=== PATIENT | male | born 1955 | race Caucasian/White ===

== ENCOUNTER → 2020-07-02 | Outpatient (CLI) | payer OTHER ==
[~2020-07-02] MED LIST: BEVESPI AEROS10.7 GM INH; CARVEDILOL12.5 MG PO; ECOTRIN81 MG PO; HYDROCODON-ACE1 EAC4 PO; HYDROXYCHLOROQ200 MG PO; IRON325 M1 PO; LEVOTHYROXINE25 MC1 PO; LEVOTHYROXINE25 MCG PO; LEVOTHYROXINE50 MC1 PO; LIPITOR40 MG PO; LISINOPRIL30 MG PO; LORATADINE10 MG PO; ULTRAM50 MG PO; VENTOLIN HFA 66.7 GM INH; VITAMIN B-121000 MCG PO; VITAMIN D3 PO
== END ==
LOC: RAD 11:26
DX: J44.9 Chronic obstructive pulmonary disease, unspecified (principal); R05 Cough; J43.9 Emphysema, unspecified; R59.0 Localized enlarged lymph nodes; S22.31XA Fracture of one rib, right side, initial encounter for closed fracture; X58.XXXA Exposure to other specified factors, initial encounter
CPT/HCPCS: 71046

== ENCOUNTER → 2020-07-16 | Outpatient (CLI) | payer MEDICARE, OTHER | LOC: CT 14:32 | DX: R91.8 Other nonspecific abnormal finding of lung field (principal); J43.9 Emphysema, unspecified; I25.10 Atherosclerotic heart disease of native coronary artery without angina pectoris | CPT/HCPCS: 36415; 71260; 82565; 84520; Q9963 ==

== ENCOUNTER → 2020-07-30 | Outpatient (CLI) | payer MEDICARE, OTHER | LOC: HEART 5 14:07 | DX: J44.9 Chronic obstructive pulmonary disease, unspecified (principal) | CPT/HCPCS: 94060; 94729 ==

== ENCOUNTER → 2020-08-07 | Day surgery (SDC) | payer MEDICARE, OTHER | END | disposition home or self-care (01) | LOC: OR 07:44 | DX: D38.1 Neoplasm of uncertain behavior of trachea, bronchus and lung (principal); J43.2 Centrilobular emphysema; F17.219 Nicotine dependence, cigarettes, with unspecified nicotine-induced disorders; E03.9 Hypothyroidism, unspecified; H26.9 Unspecified cataract; R63.4 Abnormal weight loss; Z88.1 Allergy status to other antibiotic agents; Z79.899 Other long term (current) drug therapy; Z68.1 Body mass index [BMI] 19.9 or less, adult | CPT/HCPCS: 88341; 88342; J2704; J7120 ==

== ENCOUNTER → 2020-08-19 | Outpatient (CLI) | payer MEDICARE, OTHER | LOC: MRI 13:45 | DX: C34.31 Malignant neoplasm of lower lobe, right bronchus or lung (principal); I67.82 Cerebral ischemia | CPT/HCPCS: 70553; A9577 ==

== ENCOUNTER → 2020-09-09 | Outpatient (CLI) | payer MEDICARE, OTHER ==
[2020-09-09 10:51] LABS: BUN/CREATININE RATIO 15 (0-10)
== END ==
LOC: OPSV2 08:39
PROVIDERS: Anesthesiology
DX: Z01.810 Encounter for preprocedural cardiovascular examination (principal); Z01.812 Encounter for preprocedural laboratory examination; R00.0 Tachycardia, unspecified; R94.39 Abnormal result of other cardiovascular function study
CPT/HCPCS: 80048; 93005

== ENCOUNTER → 2020-09-10 | Day surgery (SDC) | payer MEDICARE, OTHER | END | disposition home or self-care (01) | LOC: OR 06:00 | DX: C34.31 Malignant neoplasm of lower lobe, right bronchus or lung (principal); F17.219 Nicotine dependence, cigarettes, with unspecified nicotine-induced disorders; J43.9 Emphysema, unspecified; E03.9 Hypothyroidism, unspecified; Z88.1 Allergy status to other antibiotic agents | CPT/HCPCS: 71045; 77001; C1769; C1788; J1100; J1642; J2001; J2405; J2704; J3010; J7030; J7040; J7120 ==

== ENCOUNTER 2020-09-30 00:43 | Emergency (ER) | payer MEDICARE, OTHER ==
[2020-09-30 01:31] LABS: HEMOGLOBIN 13.1 gm/dl (14.0-17.5); RED BLOOD COUNT 4.52 M/UL (4.20-5.50); WHITE BLOOD COUNT 6.9 K/UL (4.5-11.0)
[2020-09-30 01:56] LABS: BUN/CREATININE RATIO 22 (0-10)
== END 2020-09-30 02:38 | disposition home or self-care (01) ==
LOC: ER1 00:43
PROVIDERS: Family Medicine
DX: J44.9 Chronic obstructive pulmonary disease, unspecified (principal); C34.90 Malignant neoplasm of unspecified part of unspecified bronchus or lung; D69.6 Thrombocytopenia, unspecified; F17.200 Nicotine dependence, unspecified, uncomplicated; Z88.0 Allergy status to penicillin
CPT/HCPCS: 71045; 80053; 82550; 82553; 83874; 83880; 84484; 85025; 93005; 94664; 94760; 96374; 99285; J1100

== ENCOUNTER → 2020-10-15 | Outpatient (CLI) | payer MEDICARE, OTHER | LOC: RT 12:23 | DX: R09.02 Hypoxemia (principal) | CPT/HCPCS: 36600; 82803 ==

== ENCOUNTER → 2020-12-30 | Outpatient (CLI) | payer MEDICARE, OTHER ==
[2020-12-30 13:54] LABS: HEMOGLOBIN 12.2 gm/dl (14.0-17.5); RED BLOOD COUNT 3.67 M/UL (4.20-5.50); WHITE BLOOD COUNT 8.9 K/UL (4.5-11.0)
[2020-12-30 14:13] LABS: BUN/CREATININE RATIO 12 (0-10)
== END ==
LOC: CT 13:18
PROVIDERS: Internal Medicine Hematology & Oncology
DX: C34.31 Malignant neoplasm of lower lobe, right bronchus or lung (principal)
CPT/HCPCS: 36415; 71260; 80053; 85025; Q9967

== ENCOUNTER → 2021-04-11 | Outpatient (CLI) | payer MEDICARE, OTHER ==
[2021-04-11 10:36] LABS: HEMOGLOBIN 15.7 gm/dl (14.0-17.5); RED BLOOD COUNT 5.14 M/UL (4.20-5.50); WHITE BLOOD COUNT 7.1 K/UL (4.5-11.0)
== END ==
LOC: CT 10:15
PROVIDERS: Internal Medicine Hematology & Oncology
DX: C34.31 Malignant neoplasm of lower lobe, right bronchus or lung (principal); R91.8 Other nonspecific abnormal finding of lung field
CPT/HCPCS: 36415; 71260; 80053; 85025; Q9967

== ENCOUNTER → 2021-07-08 | Outpatient (CLI) | payer MEDICARE, OTHER | LOC: CT 09:58 | DX: C34.31 Malignant neoplasm of lower lobe, right bronchus or lung (principal); R91.8 Other nonspecific abnormal finding of lung field; J43.9 Emphysema, unspecified; K76.9 Liver disease, unspecified; N28.1 Cyst of kidney, acquired | CPT/HCPCS: 71260; Q9967 ==

== ENCOUNTER → 2021-10-22 | Outpatient (CLI) | payer MEDICARE, OTHER ==
[2021-10-22 14:55] LABS: RED BLOOD COUNT 4.89 M/UL (4.20-5.50); WHITE BLOOD COUNT 8.3 K/UL (4.5-11.0)
== END ==
LOC: CT 14:20
PROVIDERS: Internal Medicine Hematology & Oncology
DX: C34.31 Malignant neoplasm of lower lobe, right bronchus or lung (principal); R91.1 Solitary pulmonary nodule; Z79.899 Other long term (current) drug therapy
CPT/HCPCS: 36415; 71260; 80053; 84439; 84443; 85025; Q9967

== ENCOUNTER → 2022-01-15 | Outpatient (CLI) | payer MEDICARE, OTHER ==
[2022-01-15 10:37] LABS: RED BLOOD COUNT 4.85 M/UL (4.20-5.50); WHITE BLOOD COUNT 8.4 K/UL (4.5-11.0)
[2022-01-15 11:09] LABS: BUN/CREATININE RATIO 19 (0-10)
== END ==
LOC: CT 10:00
PROVIDERS: Internal Medicine Hematology & Oncology
DX: C34.31 Malignant neoplasm of lower lobe, right bronchus or lung (principal); Z79.899 Other long term (current) drug therapy; J43.2 Centrilobular emphysema
CPT/HCPCS: 36415; 71260; 80053; 84443; 85025; Q9967